=== PATIENT | male | born 1950 | race Caucasian/White ===

== ENCOUNTER 2021-06-17 18:05 | Observation (INO) | payer MEDICARE ==
[2021-06-18] MEDS ORDERED: Cyclobenzaprine 10 MG TAB PO PRN (02:11)
[2021-06-18] MEDS ORDERED: hydrALAZINE 20 MG/ML VIAL SLOW IVP PRN (02:11)
[2021-06-18] MEDS ORDERED: Dextrose 50% Abboject 50 ML SYRINGE SLOW IVP PRN (02:11)
[2021-06-18] MEDS ORDERED: Dextrose 5% in Water 1,000 ML IV PRN (02:11)
[2021-06-18] MEDS ORDERED: Ondansetron ODT 4 MG TAB PO PRN (02:11)
[2021-06-18] MEDS ORDERED: traMADol HCl 50 MG TAB PO PRN ×3 (02:11→07:30)
[2021-06-18] MEDS ORDERED: Ondansetron PF 4 MG/2 ML Vial IVP PRN (02:11)
[2021-06-18] MEDS ORDERED: Morphine 2 MG/ML VIAL SLOW IVP PRN (02:11)
[2021-06-18] MEDS ORDERED: Sodium Chloride 0.9% 1,000 ML IV SCH (02:11)
[2021-06-18 02:38] VITALS: BMI 25.9
[2021-06-18] MEDS: Acetaminophen 500 MG TAB PO SCH ×5 (02:52→23:38)
[2021-06-18] MEDS: Ibuprofen 200 MG TAB PO SCH ×3 (02:52→21:31)
[2021-06-18 05:06] LABS: #Eosinphils 0.5 thou/uL (0.0-0.7); #Lymphocytes 1.6 thou/uL (1.20-3.40); #Monocytes 0.7 thou/uL (0.11-0.59); #Neutrophils 6.2 thou/uL (1.40-6.50); %Basophils 0.4 % (0.0-1.0); %Eosinophils 5.3 % (0.0-10.0); %Lymphocytes 18.1 % (21.0-51.0); %Monocytes 7.6 % (0.0-10.0); %Neutrophils 68.7 % (42.0-75.0); Hemoglobin 13.8 g/dL (14.0-18.0); Mean Corpuscular HGB CONC 34.1 g/dL (32.0-36.0); Mean Corpuscular Hemoglobin 30.8 pg (27.0-31.0); Mean Corpuscular Volume 90.3 fL (78.0-98.0); Mean Platelet Volume 7.4 fL (7.4-10.4); Platelet Count 235 thou/uL (130-400); RBC Distribution Width 12.3 % (11.5-14.5); Red Blood Cell (RBC) Count 4.47 mill/uL (4.70-6.10); White Blood Cell (WBC) Count 9.1 thou/uL (4.8-10.8)
[2021-06-18 05:24] LABS: Phosphorus 3.4 mg/dL (2.3-4.7)
[2021-06-18 05:27] LABS: Anion Gap 16 mmol/L (10-20); BUN (Urea Nitrogen) 33 mg/dL (8.4-25.7); Calc. Creatinine Clearance 72 mL/min (70-130); Calcium 9.3 mg/dL (7.8-10.44); Carbon Dioxide 27 mmol/L (23-31); Chloride 96 mmol/L (98-107); Glucose 403 mg/dL (83-110); Magnesium 2.1 mg/dL (1.6-2.6); Potassium 3.7 mmol/L (3.5-5.1); Sodium 135 mmol/L (136-145)
[2021-06-18] MEDS ORDERED: HumaLOG 300 UNITS/3 ML VIAL SC PRN (05:52)
[2021-06-18] MEDS ORDERED: metFORMIN 500 MG TAB PO SCH (08:00)
[2021-06-18] MEDS: Gabapentin 100 MG CAP PO SCH ×2 (08:40→21:31)
[2021-06-18] MEDS: Famotidine 20 MG TAB PO SCH ×2 (08:41→21:32)
[2021-06-18] MEDS: Allopurinol 300 MG TAB PO SCH (10:18)
[2021-06-18] MEDS: Losartan/Hydrochlorothiazide 100 mg/25 mg Tablet PO SCH (10:21)
[2021-06-18] MEDS: Cephalexin 250 MG CAP PO SCH ×2 (10:24→17:42)
[2021-06-18] MEDS: traMADol HCl 50 MG TAB PO SCH ×3 (13:28→23:39)
[2021-06-18] MEDS: HumaLOG 300 UNITS/3 ML VIAL SC PRN ×2 (13:32→17:48)
[2021-06-18] MEDS: metFORMIN 500 MG TAB PO SCH (17:42)
[2021-06-18] MEDS ORDERED: Lantus 1000 UNITS/10 ML VIAL SC SCH (21:00)
[2021-06-19] MEDS: Cephalexin 250 MG CAP PO SCH (01:19)
[2021-06-19] MEDS: Ibuprofen 200 MG TAB PO SCH (03:14)
[2021-06-19] MEDS: traMADol HCl 50 MG TAB PO SCH (05:59)
[2021-06-19] MEDS: Acetaminophen 500 MG TAB PO SCH ×2 (06:00→11:57)
[2021-06-19] MEDS: HumaLOG 300 UNITS/3 ML VIAL SC PRN ×2 (06:00→11:59)
[2021-06-19 07:45] VITALS: TEMP 98.1
[2021-06-19] MEDS: Allopurinol 300 MG TAB PO SCH (08:51)
[2021-06-19] MEDS: Famotidine 20 MG TAB PO SCH (08:51)
[2021-06-19] MEDS: metFORMIN 500 MG TAB PO SCH (08:51)
[2021-06-19] MEDS: Gabapentin 100 MG CAP PO SCH ×3 (08:52→14:21)
[2021-06-19] MEDS: Losartan/Hydrochlorothiazide 100 mg/25 mg Tablet PO SCH (08:52)
[2021-06-19] MEDS ORDERED: traMADol HCl 50 MG TAB PO SCH (08:58)
[2021-06-19] MEDS ORDERED: Enoxaparin Sodium 30 MG/0.3 ML SYRINGE SC SCH (09:00)
[2021-06-19 09:11] LABS: #Eosinphils 0.4 thou/uL (0.0-0.7); #Lymphocytes 1.5 thou/uL (1.20-3.40); #Monocytes 0.6 thou/uL (0.11-0.59); #Neutrophils 5.2 thou/uL (1.40-6.50); %Basophils 0.4 % (0.0-1.0); %Eosinophils 4.9 % (0.0-10.0); %Lymphocytes 19.9 % (21.0-51.0); %Monocytes 7.3 % (0.0-10.0); %Neutrophils 67.5 % (42.0-75.0); Hemoglobin 13.8 g/dL (14.0-18.0); Mean Corpuscular HGB CONC 31.5 g/dL (32.0-36.0); Mean Corpuscular Hemoglobin 28.5 pg (27.0-31.0); Mean Corpuscular Volume 90.7 fL (78.0-98.0); Mean Platelet Volume 7.3 fL (7.4-10.4); Platelet Count 262 thou/uL (130-400); RBC Distribution Width 12.5 % (11.5-14.5); Red Blood Cell (RBC) Count 4.83 mill/uL (4.70-6.10); White Blood Cell (WBC) Count 7.6 thou/uL (4.8-10.8)
[2021-06-19 09:35] LABS: Anion Gap 14 mmol/L (10-20); BUN (Urea Nitrogen) 31 mg/dL (8.4-25.7); Calc. Creatinine Clearance 82 mL/min (70-130); Calcium 9.2 mg/dL (7.8-10.44); Carbon Dioxide 28 mmol/L (23-31); Chloride 95 mmol/L (98-107); Glucose 249 mg/dL (83-110); Magnesium 2.1 mg/dL (1.6-2.6); Phosphorus 3.3 mg/dL (2.3-4.7); Potassium 3.9 mmol/L (3.5-5.1); Sodium 133 mmol/L (136-145)
[2021-06-19 12:26] VITALS: BP 159/96
[2021-06-19] MEDS ORDERED: Ibuprofen 200 MG TAB PO SCH (14:00)
[2021-06-19] MEDS ORDERED: Silver Sulfadiazine 50 GM TUBE TOP SCH (21:00)
== END 2021-06-19 17:39 | disposition home or self-care (01) ==
LOC: SJJU 18:05
PROVIDERS: ADMIT Specialist; ATTEND Specialist
DX: S27.0XXA Traumatic pneumothorax, initial encounter (principal); S22.41XA Multiple fractures of ribs, right side, initial encounter for closed fracture; S50.811A Abrasion of right forearm, initial encounter; S80.811A Abrasion, right lower leg, initial encounter; T79.7XXA Traumatic subcutaneous emphysema, initial encounter; I10 Essential (primary) hypertension; E11.9 Type 2 diabetes mellitus without complications; M10.9 Gout, unspecified; E78.00 Pure hypercholesterolemia, unspecified; I25.10 Atherosclerotic heart disease of native coronary artery without angina pectoris; M79.89 Other specified soft tissue disorders; Z79.84 Long term (current) use of oral hypoglycemic drugs; Z79.899 Other long term (current) drug therapy; V00.831A Fall from motorized mobility scooter, initial encounter
CPT/HCPCS: 36415; 36416; 71045; 80048; 83735; 84100; 85025; 94640; 96372; G0378; J1650; J1815; J7050; J7620

== ENCOUNTER 2021-06-22 10:19 | Outpatient (CLI) | payer MEDICARE | END 2021-06-22 10:20 | disposition home or self-care (01) | LOC: BICRAD 10:19 | PROVIDERS: ATTEND Surgery | DX: S22.39XA Fracture of one rib, unspecified side, initial encounter for closed fracture (principal); J93.9 Pneumothorax, unspecified | CPT/HCPCS: 71046 ==

== ENCOUNTER 2021-06-22 10:56 | Emergency (ER) | payer MEDICARE ==
[2021-06-22 13:36] LABS: #Eosinphils 0.4 thou/uL (0.0-0.7); #Lymphocytes 1.9 thou/uL (1.20-3.40); #Monocytes 0.9 thou/uL (0.11-0.59); #Neutrophils 6.3 thou/uL (1.40-6.50); %Basophils 0.2 % (0.0-1.0); %Eosinophils 4.5 % (0.0-10.0); %Lymphocytes 19.7 % (21.0-51.0); %Monocytes 9.3 % (0.0-10.0); %Neutrophils 66.2 % (42.0-75.0); Hemoglobin 13.8 g/dL (14.0-18.0); Mean Corpuscular Volume 90.9 fL (78.0-98.0); Mean Platelet Volume 7.5 fL (7.4-10.4); Platelet Count 320 thou/uL (130-400); RBC Distribution Width 12.1 % (11.5-14.5); Red Blood Cell (RBC) Count 4.59 mill/uL (4.70-6.10); White Blood Cell (WBC) Count 9.5 thou/uL (4.8-10.8)
[2021-06-22 13:59] LABS: Anion Gap 15 mmol/L (10-20); BUN (Urea Nitrogen) 45 mg/dL (8.4-25.7); Calc. Creatinine Clearance 0 mL/min (70-130); Carbon Dioxide 27 mmol/L (23-31); Chloride 94 mmol/L (98-107); Sodium 132 mmol/L (136-145)
[2021-06-22 14:00] LABS: ALT (SGPT) 42 U/L (8-55); AST (SGOT) 19 U/L (5-34); Albumin 3.9 g/dL (3.4-4.8); Alkaline Phosphatase 59 U/L (40-110); Bilirubin, Total 0.8 mg/dL (0.2-1.2); Calcium 9.5 mg/dL (7.8-10.44); Globulin 2.7 g/dL (2.4-3.5); Glucose 119 mg/dL (83-110); Protein, Total 6.6 g/dL (5.8-8.1)
[2021-06-22] MEDS ORDERED: traMADol HCl 50 MG TAB ONE (15:30)
[2021-06-22] MEDS ORDERED: Silver Sulfadiazine 50 GM TUBE ONE (16:13)
== END 2021-06-22 17:29 | disposition home or self-care (01) ==
LOC: ERS 10:56
DX: L03.115 Cellulitis of right lower limb (principal); E86.0 Dehydration; E11.65 Type 2 diabetes mellitus with hyperglycemia; I10 Essential (primary) hypertension
CPT/HCPCS: 36415; 36416; 71046; 80053; 85025; 93005